=== PATIENT | female | born 1945 | race Caucasian/White ===

== ENCOUNTER 2016-10-18 16:16 | Emergency (ER) | payer OTHER, MEDICARE ==
[~2016-10-18] VITALS: Ht 157.5 cm; Wt 77.1 kg
[2016-10-18] MEDS ORDERED: XARELTO20 M2 PO (16:25)
[2016-10-18] MEDS ORDERED: METOPROLOL SUCC50 M2 PO (16:25)
[2016-10-18] MEDS ORDERED: CALTRATE 600 +1 EACH PO (16:26)
[2016-10-18] MEDS ORDERED: ZYRTEC10 M3 PO (16:27)
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
[2016-10-18] MEDS ORDERED: CYCLOBENZAPRINE5 M2 PO (19:24)
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
[2016-10-18 19:51] VITALS: BP 154/89
== END 2016-10-18 19:54 ==
LOC: ERH 16:16
DX: S29.011A Strain of muscle and tendon of front wall of thorax, initial encounter (principal); V49.50XA Passenger injured in collision with unspecified motor vehicles in traffic accident, initial encounter; Y92.9 Unspecified place or not applicable
CPT/HCPCS: 93005; 93010